=== PATIENT | female | born 1975 | race Caucasian/White ===

== ENCOUNTER 2018-04-21 07:55 | Outpatient (CLI) | payer OTHER ==
--- NOTE | 2018-04-21 08:56 | ULT ---
GALLBLADDER ULTRASOUND: HISTORY: Elevated LFTs. COMPARISON: None. TECHNIQUE: Utilizing a multihertz transducer, sonographic imaging of the right upper quadrant is performed in th e longitudinal and transverse plane. FINDINGS: The pancreas is obscured by bowel gas. Hepatic parenchyma has a normal echotexture. No hepatic masses or intrahepatic biliary dilatation. The contour of the hepatic margin is maintained. Right hepatic lobe measures 14.6 cm. Main portal vein is patent. Appropriate direction of flow. There is sludge within the lumen of the gallbladder. Gallbladder wall is not thickened. No perichol ecystic fluid. Negative Scott's sign. Common bile duct diameter is 0.5 cm. No hydronephrosis. The right kidney measures 4.5 x 4.2 x 10.8 cm. IMPRESSION: Sonographic evidence of sludge within the lumen of the gallbladder. No sonographic evidence of migue cystitis. POS: [facility]
== END 2018-04-21 07:56 | disposition home or self-care (01) ==
LOC: SCSULT 07:55
PROVIDERS: ATTEND Family Medicine
DX: R74.8 Abnormal levels of other serum enzymes (principal); K82.8 Other specified diseases of gallbladder
CPT/HCPCS: 76705

== ENCOUNTER 2020-07-29 15:10 | Outpatient (CLI) | payer OTHER ==
[2020-07-30 04:50] LABS: SARS-CoV-2 PCR by NAA Not Detected (NotDetected)
== END 2020-07-29 15:11 | disposition home or self-care (01) ==
LOC: LABBT 15:10
PROVIDERS: ATTEND Family Medicine
DX: Z01.812 Encounter for preprocedural laboratory examination (principal); Z20.822 Contact with and (suspected) exposure to COVID-19
CPT/HCPCS: 87635; U0003; U0005

== ENCOUNTER 2020-08-01 11:50 | Day surgery (SDC) | payer OTHER ==
[2020-07-31 15:46] VITALS: BMI 32.3
[2020-08-01] MEDS ORDERED: Lidocaine 1% PF 5 ML VIAL ONE (12:30)
[2020-08-01] MEDS ORDERED: PROPOFOL 200 MG/20 ML VIAL ONE (12:30)
[2020-08-01] MEDS ORDERED: Scopolamine 1.5 mg/72 hour Patch ONE (12:33)
[2020-08-01] MEDS ORDERED: Fentanyl 100 MCG/2 ML VIAL ONE (12:55)
[2020-08-01] MEDS ORDERED: Magnevist 469MG/ML 20 ML VIAL ONE (15:31)
== END 2020-08-01 15:00 | disposition home or self-care (01) ==
LOC: SDC/OP 11:50
PROVIDERS: ATTEND Family Medicine
DX: G25.0 Essential tremor (principal); E05.00 Thyrotoxicosis with diffuse goiter without thyrotoxic crisis or storm; Z79.899 Other long term (current) drug therapy
CPT/HCPCS: 36415; 70553; 82565; A9579; J2704; J3010